=== PATIENT | male | born 1995 | race Caucasian/White ===

== ENCOUNTER 2020-12-31 16:02 | Emergency (ER) | payer OTHER, SELFPAY ==
--- NOTE | ~2020-12-31 | XR_ITS ---
EXAMINATION: XR chest 1V portable INDICATION: Chest pain TECHNIQUE: Portable AP chest at 1621 hours COMPARISON: None available FINDINGS: The lungs are free of acute opacities. There is no pleural effusion or pneumothorax. The ca rdiomediastinal silhouette is normal. The visualized osseous structures are unremarkable IMPRESSION: 1. No acute cardiopulmonary abnormality. Reviewed, dictated and finalized at location A.
--- NOTE | ~2020-12-31 | CT_ITS ---
EXAMINATION: CT chest abdomen pelvis w con DATE: 12/31/2020 18:28 INDICATION: Right-sided chest and abdominal pain TECHNIQUE: Transaxial computed tomographic images of the chest, abdomen, and pelvis were obtained aft er the administration of 100 cc of Omnipaque 350 intravenous contrast. The dose-length product (DLP) was 1596.00 mGy-cm. Automated exposure control and iterative reconstruction technique were employed. COMPARISON: None FINDINGS: CHEST CT: There is no pleural effusion or pneumothorax. The thoracic aorta is normal without aneurysm or dissec tion. No pathologically enlarged thoracic lymph nodes are identified. The heart size is normal. Trian gular soft tissue density in the anterior mediastinum is consistent with residual thymus. The visuali zed osseous structures are unremarkable. ABDOMEN/PELVIS CT: The liver, spleen, pancreas, gallbladder, and adrenal glands are normal. The kidneys are unremarkable . No pathologically enlarged abdominal or pelvic lymph nodes are identified. There is no free intrape ritoneal gas or evidence of bowel obstruction. The abdominal aorta is normal without aneurysm or diss ection. There is bruising in the soft tissues overlying the right hip. There appears to be a small fo cus of hematoma overlying the right hip. The soft tissue foreign bodies questioned on pelvic radiogra phs are external to the patient. IMPRESSION: 1. No visceral abnormality of the chest, abdomen, or pelvis. 2. Bruising and small hematoma overlying the right hip. Reviewed, dictated and finalized at location A.
--- NOTE | ~2020-12-31 | CT_ITS ---
EXAMINATION: CT brain wo con INDICATION: Head injury COMPARISON: None TECHNIQUE: Standard unenhanced head CT. The dose-length product (DLP) was 605.33 mGy-cm. The mA was a djusted according to patient size. Iterative reconstruction technique was employed. FINDINGS: There is no intracranial hemorrhage, acute infarction, or abnormal mass lesion. The ventric les are normal. There is no abnormal mass effect or midline shift. The guerrero-white matter differentiat ion is normal. The basal cisterns are patent. The orbits are normal. There is mild mucosal thickening of the paranasal sinuses. IMPRESSION: 1. No acute intracranial abnormality. Reviewed, dictated and finalized at location A.
--- NOTE | ~2020-12-31 | CT_ITS ---
EXAMINATION: CT cervical spine wo con DATE: 12/31/2020 16:57 INDICATION: Head injury TECHNIQUE: Computed tomography (CT) of the cervical spine was performed without intravenous contrast. The dose-length product (DLP) was 404.77 mGy-cm. Automated exposure control and iterative reconstruc tion technique were employed. COMPARISON: None FINDINGS: There is no fracture, dislocation, or subluxation. The vertebral body heights, alignment, a nd intervertebral disc spaces are normal. The paravertebral soft tissues are unremarkable. The odonto id is intact. IMPRESSION: 1. No acute osseous abnormality. Reviewed, dictated and finalized at location A.
--- NOTE | ~2020-12-31 | XR_ITS ---
EXAMINATION: XR pelvis 1-2V INDICATION: Pelvic pain TECHNIQUE: AP view the pelvis is obtained on three radiographs COMPARISON: None available FINDINGS: Bone alignment is normal. There is no fracture. There is a 12 mm hyperdensity projecting me dial to the left proximal femur of unclear location. IMPRESSION: 1. No acute osseous abnormality. 2. Possible radiopaque foreign body of the medial right thigh. Reviewed, dictated and finalized at location A.
--- NOTE | 2020-12-31 16:19 | ECG_ITS ---
Measurements Intervals [place] Rate: 62 P: 13 CA: 171 QRS: 81 QRSD: 99 T: 34 QT: 382 QTc: 389 Interpretive Statements SINUS RHYTHM INCOMPLETE RIGHT BUNDLE BRANCH BLOCK DELAYED PRECORDIAL R/S TRANSITION BASELINE WANDER- I, II, III, V4 BORDERLINE ECG Electronically Signed On 01-01-2021 11:34:56 CDT by James Tellez D.O.
[2020-12-31 16:32] VITALS: BP 109/67; PULSE 69; RESP 20; TEMP 36.8; O2SAT 100
[2020-12-31 16:37] VITALS: PULSE 67
[2020-12-31] MEDS: TETANUS,DIPHTHERIA,AC PERTUSSIS ADULT (0.5 ML) BOOSTRIX IM (16:40)
[2020-12-31] MEDS: MORPHINE SULFATE (*CRX) 4 MG/ML INJ IV PUSH (16:41)
[2020-12-31] MEDS: SODIUM CHLORIDE 0.9% IV 1,000 ML 999 ML IV CONT ×2 (16:41→20:18)
[2020-12-31] MEDS: ONDANSETRON INJ 4 MG/2 ML VIAL IV PUSH ×2 (16:41→20:17)
[2020-12-31 17:17] VITALS: BP 109/67; PULSE 67; RESP 18; O2SAT 100
[2020-12-31 18:21] LABS: Estimated CRCL calculation 78 ml/min; Estimated Glomerular Filt Rate 58
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
[2020-12-31 19:09] LABS: Basophils Percent Auto 0.2 % (0.2-1.2); Eosinophils Percent Auto 0.2 % (0-4.4); Hematocrit 44.9 % (42.0-52.0); Immature Granulocyte Absolute 0.06 K/mm3 (0.00-0.031); Immature Granulocyte Percent A 0.5 % (0-0.5); Lymphocytes Absolute Auto 1.02 K/mm3 (0.9-3.2); Mean Corpuscular HGB Conc 35.6 g/dl (32-36); Mean Corpuscular Hemoglobin 31.8 pg (26-34); Mean Corpuscular Volume 89.3 fl (80-100); Mean Platelet Volume 9.8 fl (7.4-10.4); Monocytes Absolute Auto 0.9 K/mm3 (0.1-0.6); Monocytes Percent Auto 6.7 % (2.6-8.5); Neutrophils Absolute Auto 10.8 K/mm3 (1.3-6.7); Neutrophils Percent Auto 84.4 % (45.5-73.1); Platelet Count Result 167 k/mm3 (150-375); Red Blood Count 5.03 M/mm3 (4.6-6.20); Red Cell Distribution Width 12.2 % (11.5-14.5); White Blood Count 12.8 K/mm3 (4.5-10.0)
[2020-12-31 19:19] LABS: Alanine Aminotransferase 25 U/L (4-50); Albumin Level 4.1 g/dL (3.5-5.1); Alkaline Phosphatase 60 U/L (38-126); Anion Gap 8 mmol/L (8-16); Aspartate Amino Transferase 36 U/L (17-59); Bilirubin,Total 0.8 mg/dL (0.2-1.3); Blood Urea Nitrogen 28 mg/dL (9-20); Calcium 8.6 mg/dL (8.4-10.2); Carbon Dioxide 25 mmol/L (22-30); Chloride 103 mmol/L (98-107); Estimated CRCL calculation 89 ml/min; Estimated Glomerular Filt Rate > 60; Glucose 127 mg/dL (65-110); Sodium 136 mmol/L (137-145)
[2020-12-31 19:22] LABS: INR 1.1; Prothrombin Time 13.6 Seconds (11.1-14.7)
[2020-12-31 19:23] LABS: Partial Thromboplastin Time 26.9 SECONDS (22.3-36.8)
[2020-12-31 19:24] VITALS: BP 107/73; PULSE 76; RESP 18; O2SAT 100
[2020-12-31] MEDS: KETOROLAC 30 MG/ML VIAL (*BKC) IV PUSH (19:52)
[2020-12-31] MEDS: HYDROcodone/acetaminophen (*CRX) 5-325 MG TABLET 1 TAB PO (19:52)
[2020-12-31] MEDS: diazePAM (*CRX) 5 MG TABLET PO (19:52)
[2020-12-31 20:31] VITALS: BP 126/88; PULSE 72; RESP 11; O2SAT 100
[2020-12-31 21:40] VITALS: BP 119/61; PULSE 67; RESP 12; O2SAT 97
== END 2020-12-31 21:40 | disposition home or self-care (01) ==
PROVIDERS: Emergency Medicine Emergency Medical Services; Emergency Provider Emergency Medicine; PCP Pediatrics
DX: S20.419A Abrasion of unspecified back wall of thorax, initial encounter (principal); S30.810A Abrasion of lower back and pelvis, initial encounter; S70.311A Abrasion, right thigh, initial encounter; S40.811A Abrasion of right upper arm, initial encounter; S09.90XA Unspecified injury of head, initial encounter; V28.4XXA Motorcycle driver injured in noncollision transport accident in traffic accident, initial encounter
CPT/HCPCS: 70450; 71045; 71260; 72125; 72170; 74177; 80053; 85025; 85610; 85730; 90471; 90715; 93005; 96361; 96374; 96375; 96376; 99284; A9270; J1885; J2270; J2405; J7030; Q9967